=== PATIENT | female | born 1970 | race Caucasian/White ===

== ENCOUNTER 2016-07-02 20:51 | Emergency (ER) | payer OTHER ==
[2016-07-02 23:18] VITALS: BP 146/89
== END 2016-07-02 23:18 | disposition home or self-care (01) ==
LOC: ED 20:51
DX: S13.9XXA Sprain of joints and ligaments of unspecified parts of neck, initial encounter (principal); S43.401A Unspecified sprain of right shoulder joint, initial encounter; S43.402A Unspecified sprain of left shoulder joint, initial encounter; V49.40XA Driver injured in collision with unspecified motor vehicles in traffic accident, initial encounter; Y93.89 Activity, other specified; Y99.8 Other external cause status; Y92.410 Unspecified street and highway as the place of occurrence of the external cause; Z88.2 Allergy status to sulfonamides; Z88.8 Allergy status to other drugs, medicaments and biological substances

== ENCOUNTER 2016-09-21 16:29 | Emergency (ER) | payer OTHER ==
[~2016-09-21] VITALS: Ht 157.5 cm; Wt 63.5 kg
[2016-09-21 19:17] VITALS: BP 121/83
== END 2016-09-21 19:17 | disposition home or self-care (01) ==
LOC: ED 16:29
DX: J98.01 Acute bronchospasm (principal); L93.0 Discoid lupus erythematosus; Z88.2 Allergy status to sulfonamides; Z88.8 Allergy status to other drugs, medicaments and biological substances